=== PATIENT | female | born 1990 | race African-American/Black ===

== ENCOUNTER 2019-04-25 08:39 | Emergency (ER) | payer MEDICAID ==
[~2019-04-25] VITALS: Ht 167.6 cm; Wt 181.4 kg
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
[2019-04-25] MEDS ORDERED: PROCHLORPERAZINE 10 MG/2 ML VIAL. IV ONE (10:30)
[2019-04-25] MEDS ORDERED: KETOROLAC 30 MG/ML VIAL. IV ONE (10:30)
[2019-04-25] MEDS ORDERED: diphenhydrAMINE 50 MG/ML VIAL IVP ONE (10:30)
[2019-04-25] MEDS ORDERED: IV NORMAL SALINE 1000ML BAG 1,000 ML IV ONE (10:30)
[2019-04-25 10:36] LABS: BASO # 0.1 x10^3/uL (0.0-0.2); BASO % 1 % (0-3); EOS # 0.1 x10^3/uL (0.0-0.7); EOS % 2 % (0-3); HEMATOCRIT 39.1 % (36.0-47.0); HEMOGLOBIN 12.8 g/dL (12.0-15.5); LYMPH # 1.7 x10^3/uL (1.0-4.8); LYMPH % 21 % (24-48); MEAN CORPUSCULAR HEMOGLOBIN 27 pg (25-35); MEAN CORPUSCULAR HGB CONC 33 g/dL (31-37); MEAN CORPUSCULAR VOLUME 82 fL (79-100); MONO # 0.4 x10^3/uL (0.0-1.1); MONO % 5 % (0-9); NEUT # 5.9 x10^3/uL (1.8-7.7); NEUT % 71 % (31-73); PLATELET COUNT 257 x10^3/uL (140-400); RED BLOOD COUNT 4.74 x10^6/uL (3.50-5.40); RED CELL DISTRIBUTION WIDTH 15.5 % (11.5-14.5); WHITE BLOOD COUNT 8.3 x10^3/uL (4.0-11.0)
[2019-04-25 10:41] LABS: BARBITURATES NEG (NEG); BENZODIAZEPINES NEG (NEG); CANNABINOIDS NEG (NEG); COCAINE NEG (NEG); METHADONE NEG (NEG); OPIATES NEG (NEG); PHENCYCLIDINE NEG (NEG)
[2019-04-25 10:43] LABS: AMPHETAMINE/METHAMPHETAMINE NEG (NEG)
[2019-04-25 10:49] LABS: CALCIUM 9.6 mg/dL (8.5-10.1); CREATININE 1.4 mg/dL (0.6-1.0); GFR 53.8; POTASSIUM 4.2 mmol/L (3.5-5.1)
[2019-04-25 10:55] LABS: ALBUMIN 3.5 g/dL (3.4-5.0); ALBUMIN/GLOBULIN RATIO 0.8 (1.0-1.7); TOTAL BILIRUBIN 0.3 mg/dL (0.2-1.0)
--- NOTE | 2019-04-25 11:02 | RAD ---
CT HEAD WO CONTRAST Clinical indications: Headache. Blurred vision. COMPARISON: None available. Technique: Noncontrast axial cross sectional scanning of the head was performed. PQRS compliance Statement One or more of the following individualized dose reduction techniques were utilized for this study: 1. Automated exposure control 2. Adjustment of the mA and/or kV according to patient size 3. Use of iterative reconstruction technique Findings: No acute intracranial hemorrhage or midline shift or mass-effect or hydrocephalus or extra-axial fluid collection is seen. No focal hypodense area or sulci effacement is seen to indicate an acute infarct or edema radiographically. No skull fracture or pneumocephalus is seen. No opacification of the mastoid sinuses or the middle ear cavities or the paranasal sinuses is seen. Impression: No acute intracranial abnormality is seen. Electronically signed by: Jeffrey Robles MD (04/25/2019 10:58 AM) [facility]
[2019-04-25 11:25] VITALS: BP 130/69
[2019-04-25] MEDS ORDERED: HYDR-3164 PO (11:26)
--- NOTE | 2019-04-25 11:43 | RAD ---
Examination: KNEE RIGHT 4V History: Right knee pain Comparison/Correlation: None Findings: Total of 4 images of the right knee were obtained including patellar sunrise view. Spurring about about the knee is noted. Joint spaces are adequate. No acute fracture or bony destruction. Soft tissues are unremarkable. No definite joint effusion. Impression: Spurring about the knee. Electronically signed by: Israel Khalil MD (04/25/2019 11:40 AM) [facility]
== END 2019-04-25 11:30 | disposition home or self-care (01) ==
LOC: ER 08:39
DX: G43.009 Migraine without aura, not intractable, without status migrainosus (principal); M25.561 Pain in right knee; R22.41 Localized swelling, mass and lump, right lower limb
CPT/HCPCS: 36415; 70450; 73564; 80053; 80307; 81025; 85025; 96374; 96375; 99285; J0780; J1200; J1885; J7030

== ENCOUNTER 2019-08-09 19:56 | Emergency (ER) | payer MEDICAID ==
[~2019-08-09] VITALS: Ht 167.6 cm; Wt 194.8 kg
[~2019-08-09 19:56] MED LIST: HYDR-3164 PO
[2019-08-09 20:15] VITALS: BP 137/81
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
== END 2019-08-09 22:02 | disposition home or self-care (01) ==
LOC: ER 19:56
DX: M54.6 Pain in thoracic spine (principal); G89.11 Acute pain due to trauma; G43.909 Migraine, unspecified, not intractable, without status migrainosus; W18.39XA Other fall on same level, initial encounter; Y93.89 Activity, other specified; Y92.89 Other specified places as the place of occurrence of the external cause; Y99.8 Other external cause status
CPT/HCPCS: 99281

== ENCOUNTER 2021-07-17 10:07 | Emergency (ER) | payer MEDICAID ==
[~2021-07-17] VITALS: Ht 167.6 cm; Wt 172.7 kg
[2021-07-17 10:15] VITALS: BP 167/91
--- NOTE | 2021-07-17 11:07 | ED.ADGEN ---
Past Medical History Past Medical History: Migraines, Other Additional Past Medical Histor: TAKING INJECTIONS FOR WEIGHT LOSS Past Surgical History: Smoking Status: Never Smoker Alcohol Use: None Drug Use: None General Adult EDM: Chief Complaint: DENTAL PROBLEM HPI: HPI: Patient is a 30-year-old female who arrives ambulatory to the emergency department complaint of right-sided facial swelling as well as dental pain. Patient reports this pain is been ongoing for a month. Patient states this pain has become more steady however over the past several days. She states she does have a dentist and is scheduled for an appointment in the upcoming future. Sol ent states she is tenderness in the region of one of her molars and has developed facial swelling at the right side of her jaw. Patient states she is taking [id number] medications without relief. She does states she felt warm however she is unaware of any fevers. She denies trauma, cough or shortness of air. She further denies any headache or rash. She is awake, alert and nontoxic-appearing Review of Systems: Review of Systems: Constitutional: Denies fever or chills. [] Eyes: Denies change in visual acuity. [] HENT: Right-sided facial swelling, dental pain. Denies nasal congestion or sore throat. [] Respiratory: Denies cough or shortness of breath. [] Cardiovascular: Denies chest pain or edema. [] GI: Denies abdominal pain, nausea, vomiting, bloody stools or diarrhea. [] : Denies dysuria. [] Musculoskeletal: Denies back pain or joint pain. [] Integument: Denies rash. [] Neurologic: Denies headache, focal weakness or sensory changes. [] Endocrine: Denies polyuria or polydipsia. [] Lymphatic: Denies swollen glands. [] Psychiatric: Denies depression or anxiety. [] Family History: Family History: Noncontributory Allergies: Allergies: Allergies Coded Allergies Type Severity Reaction Last Updated Verified No Known Drug Allergies 04/25/19 No Physical Exam: PE: Constitutional: Well developed, well nourished, no acute distress, non-toxic appearance. [] HENT: Patient has trace swelling along the jawline of the right side. There is also tenderness palpation in the region of her molars on the right side as well in the mandibular segment. There is no gingival swelling or mucosal trauma present. Normocephalic, atraumatic, bilateral external ears normal, oropharynx moist, no oral exudates, nose normal. [] Eyes: PERRLA, EOMI, conjunctiva normal, no discharge. [] Neck: Normal range of motion, no tenderness, supple, no stridor. [] Cardiovascular:Heart rate regular rhythm, no murmur [] Lungs & Thorax: Bilateral breath sounds clear to auscultation [] Abdomen: Bowel sounds normal, soft, no tenderness, no masses, no pulsatile masses. [] Skin: Warm, dry, no erythema, no rash. [] Back: No tenderness, no CVA tenderness. [] Extremities: No tenderness, no cyanosis, no clubbing, ROM intact, no edema. [] Neurologic: Alert and oriented X 3, normal motor function, normal sensory function, no focal deficits noted. [] Psychologic: Affect normal, judgement normal, mood normal. [] Current Patient Data: Vital Signs: Vital Signs Date Time Temp Pulse Resp B/P (MAP) Pulse Ox O2 Delivery O2 Flow Rate FiO2 07/17/21 10:15 97.9 95 20 167/91 (116) 96 Room Air 97.9 EKG: EKG: [] Heart Score: C/O Chest Pain: No Risk Factors: Risk Factors: DM, Current or recent (<one month) smoker, HTN, HLP, family history of CAD, obesity. Risk Scores: Score 0 - 3: 2.5% MACE over next 6 weeks - Discharge Home Score 4 - 6: 20.3% MACE over next 6 weeks - Admit for Clinical Observation Score 7 - 10: 72.7% MACE over next 6 weeks - Early Invasive Strategies Radiology/Procedures: Radiology/Procedures: [] Course & Med Decision Making: Course & Med Decision Making Pertinent Labs and Imaging studies reviewed. (See chart for details) [] Dragon Disclaimer: Dragon Disclaimer: This electronic medical record was generated, in whole or in part, using a voice recognition dictation system. Departure Departure Impression: Primary Impression: Dental caries Disposition: HOME / SELF CARE / HOMELESS Condition: STABLE Referrals: JENISE GARCIA (PCP) Patient Instructions: Dental Caries Scripts Tramadol Hcl (ULTRAM) 50 Mg Tablet 50 MG PO Q6HRS PRN for PAIN for 3 Days, #12 TAB 0 Refills Prov: CALE LANDRY DO 07/17/21 Penicillin V Potassium (PENICILLIN V POTASSIUM) 500 Mg Tablet 1 TAB PO QID, #40 TAB Prov: CALE LANDRY DO 07/17/21 CALE LANDRY DO Jul 17, 2021 11:07
[2021-07-17] MEDS ORDERED: PENI500T PO (11:14)
[2021-07-17] MEDS ORDERED: TRAM-48 PO (11:14)
== END 2021-07-17 11:07 | disposition home or self-care (01) ==
LOC: ER 10:07
DX: K02.9 Dental caries, unspecified (principal); G43.909 Migraine, unspecified, not intractable, without status migrainosus; Z98.890 Other specified postprocedural states
CPT/HCPCS: 99283

== ENCOUNTER 2021-08-16 21:05 | Emergency (ER) | payer MEDICAID ==
[~2021-08-16] VITALS: Ht 167.6 cm; Wt 177.3 kg
[~2021-08-16 21:05] MED LIST changes: +PENI500T PO; +TRAM-48 PO
[2021-08-16 22:42] VITALS: BP 146/96
[2021-08-16] MEDS ORDERED: ORPH100T PO (23:04)
[2021-08-16] MEDS ORDERED: NAPR-514 PO (23:04)
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
[2021-08-16] MEDS ORDERED: ORPHENADRINE CITRATE 60 MG/2 ML VIAL. IM ONE (23:30)
[2021-08-16] MEDS ORDERED: KETOROLAC 30 MG/ML VIAL. IM ONE (23:30)
[2021-08-16] MEDS ORDERED: DEXAMETHASONE SOD PHOS 20 MG/5 ML VIAL. IM ONE (23:30)
== END 2021-08-16 23:39 | disposition home or self-care (01) ==
LOC: ER 21:05
DX: S13.9XXA Sprain of joints and ligaments of unspecified parts of neck, initial encounter (principal); G43.909 Migraine, unspecified, not intractable, without status migrainosus; V49.59XA Passenger injured in collision with other motor vehicles in traffic accident, initial encounter; Y93.89 Activity, other specified; Y92.488 Other paved roadways as the place of occurrence of the external cause; Y99.8 Other external cause status
CPT/HCPCS: 81025; 96372; 99284; J1100; J1885; J2360